=== PATIENT | female | born 1985 | race Caucasian/White ===

== ENCOUNTER 2020-08-20 09:07 | Emergency (ER) | payer BC, SELFPAY ==
--- NOTE | ~2020-08-20 | US_ITS ---
EXAMINATION: US OB <=14 wk fetus w TV DATE: 08/20/2020 10:59 INDICATION: Abdominal pain during first trimester TECHNIQUE: Real-time pelvic transabdominal and transvaginal ultrasound was performed. COMPARISON: None. FINDINGS: The uterus measures 8.4 x 5.0 x 6.4 cm. There is an intrauterine gestational sac. There is a 10 mm x 4 mm x 4 mm hypoechoic area adjacent to the gestational sac. A yolk sac is identified. Fet al heart motion is identified measuring 132 beats per minute (bpm) by M-mode Doppler. The crown rump length measures 4 mm , which correlates with an estimated gestational age of 6 weeks and 1 day( s) (+/-) 4 day(s). The right ovary measures 5.0 x 4.0 x 3.8 cm and contains a 3.7 cm cyst. The left ovary measures 2.9 x 1.5 x 2.5 cm. There is normal vascular flow in the ovaries. There is a small amount of free fluid in the pelvis. IMPRESSION: 1. Live intrauterine with an estimated gestational age of 6 weeks and 1 day(s) (+/-) 4 day( s) and an estimated delivery date of 04/14/2021. 2. Small subchronic hematoma. Reviewed, dictated and finalized at location B. IMPRESSION: 1. Live intrauterine with an estimated gestational age of 6 weeks and 1 day(s) (+/-) 4 day(s) and an estimated delivery date of 04/14/2021. 2. Small subchronic hematoma.
[2020-08-20 09:20] VITALS: BP 127/74; PULSE 72; RESP 18; TEMP 36.9; O2SAT 100
[2020-08-20 09:49] LABS: Basophils Percent Auto 0.4 % (0.2-1.2); Eosinophils Percent Auto 0.4 % (0-4.4); Hematocrit 39.1 % (37.0-47.0); Hemoglobin 13.2 g/dL (12.0-15.0); Immature Granulocyte Absolute 0.02 K/mm3 (0.00-0.031); Immature Granulocyte Percent A 0.4 % (0-0.5); Lymphocytes Absolute Auto 1.54 K/mm3 (0.9-3.2); Lymphocytes Percent Auto 29.2 % (18.3-44.2); Mean Corpuscular HGB Conc 33.8 g/dl (32-36); Mean Corpuscular Hemoglobin 30.1 pg (26-34); Mean Corpuscular Volume 89.1 fl (80-100); Mean Platelet Volume 9.1 fl (7.4-10.4); Monocytes Absolute Auto 0.4 K/mm3 (0.1-0.6); Monocytes Percent Auto 7.4 % (2.6-8.5); Neutrophils Absolute Auto 3.3 K/mm3 (1.3-6.7); Neutrophils Percent Auto 62.2 % (45.5-73.1); Platelet Count Result 255 k/mm3 (150-375); Red Blood Count 4.39 M/mm3 (4.2-5.4); Red Cell Distribution Width 11.9 % (11.5-14.5); White Blood Count 5.3 K/mm3 (4.5-10.0)
[2020-08-20 10:24] LABS: Add Urine Microscopic? YES; Appearance Urine Clear (Clear); Bacteria Urine Trace /hpf; Bilirubin Urine Negative (Negative); Blood Urine Negative (Negative); Color Urine Straw (Yellow); Glucose Urine UA Negative (Negative); Ketones Urine Negative (Negative); Leukocyte Esterase Ur 1+ LEU/UL (Negative); Nitrate Urine Negative (Negative); Protein Urine Negative (Negative); RBC Urine 0-2 /hpf (0-2); Specific Grav Ur 1.005 (1.001-1.035); Squamous Epithelial Cell Urine Moderate /hpf (Few); Urobilinogen Urine Negative mg/dL (<2.0); WBC Urine 0-3 /hpf
[2020-08-20 12:03] VITALS: BP 101/58; BP 111/68; PULSE 60; PULSE 63
[2020-08-20 12:05] VITALS: BP 112/73; PULSE 64
--- NOTE | 2020-08-20 12:25 | ED.FEMALEGU ---
HPI - Female Genitourinary General Chief complaint: APPEALS COORDINATOR Stated complaint: abdominal cramping 5 weeks Time Seen by Provider: 08/20/20 09:50 History of Present Illness HPI Narrative: Patient is a 35-year-old female who presents ER with lower abdominal cramping. Began earlier this morning radiates into the back. No vaginal bleeding or vaginal discharge or leakage of fluid. Denies dysuria or urinary frequency. Patient discovered 2 days ago that she is . She is a G3, P2. She is not had an ultrasound. No history of ectopic . Discussed case with her director of student services who recommend she come to the ER to be evaluated. Related Data Home Medications Medication Instructions Recorded Confirmed One Daily 08/20/20 Allergies Allergy/AdvReac Type Severity Reaction Status Date / Time No Known Allergies Allergy Verified 08/20/20 09:54 Review of Systems Review of Systems: All systems reviewed & are unremarkable except as noted in HPI and below Gastrointestinal: Gastrointestinal: Reports abdominal pain, Denies diarrhea, Denies nausea and Denies vomiting Genitourinary: Genitourinary: Denies abnormal vaginal bleeding, Denies hematuria, Denies nocturia and Denies vaginal discharge Musculoskeletal: Musculoskeletal: Reports back pain and Denies muscle cramps PMFSH Past Medical History Medical History (Updated 08/20/20 @ 12:29 by Satya Burden MD) Vaginal delivery x 2 Family History Family History Mother Breast cancer Father Hypertension Social History Social History Smoking status: Never smoker Exam Narrative: Exam Narrative: GENERAL: Well-appearing, well-nourished, and in no acute distress. HEAD: Normocephalic, atraumatic. CHEST: Clear to auscultation. No respiratory distress. HEART: Regular rate and rhythm. Normal peripheral pulses. ABDOMEN: Soft, nontender, nondistended. EXTREMITIES: Normal range of motion. No edema. SKIN: Warm, dry, no rash. NEURO: Alert and oriented x3. PSYCH: Normal mood and affect. Course Course Emergency Course: Informed results. Discharge home. Follow-up with primary OB. Vital Signs Vital signs: Vital Signs Temperature 98.5 F 08/20/20 09:20 Pulse Rate 72 08/20/20 09:20 Respiratory Rate 18 08/20/20 09:20 Blood Pressure 127/74 08/20/20 09:20 Pulse Oximetry 100 08/20/20 09:20 Temperature 98.5 F 08/20/20 09:20 Pulse Rate 64 08/20/20 12:05 Respiratory Rate 18 08/20/20 09:20 Blood Pressure 112/73 08/20/20 12:05 Pulse Oximetry 100 08/20/20 09:20 MDM - Female Genitourinary Lab Data Result diagrams: 08/20/20 09:27 Labs: Lab Results 08/20/20 08/20/20 08/20/20 Range/Units 09:25 09:27 09:27 WBC 5.3 (4.5-10.0) K/mm3 RBC 4.39 (4.2-5.4) M/mm3 Hgb 13.2 (12.0-15.0) g/dL Hct 39.1 (37.0-47.0) % MCV 89.1 (80-100) fl MCH 30.1 (26-34) pg MCHC 33.8 (32-36) g/dl RDW 11.9 (11.5-14.5) % Plt Count 255 (150-375) k/mm3 MPV 9.1 (7.4-10.4) fl Immature Gran % (Auto) 0.4 (0-0.5) % Neut % (Auto) 62.2 (45.5-73.1) % Lymph % (Auto) 29.2 (18.3-44.2) % [place] % (Auto) 7.4 (2.6-8.5) % Eos % (Auto) 0.4 (0-4.4) % Baso % (Auto) 0.4 (0.2-1.2) % Lymph # (Auto) 1.54 (0.9-3.2) K/mm3 [place] # (Auto) 0.4 (0.1-0.6) K/mm3 Eos # (Auto) 0.0 (0-0.3) K/mm3 Baso # (Auto) 0.0 (0.0-0.1) K/mm3 Abs Immat Gran (auto) 0.02 (0.00-0.031) K/mm3 Absolute Neuts (auto) 3.3 (1.3-6.7) K/mm3 Absolute Nucleated RBC 0.0 (0.0-0.012) K/mm3 Nucleated RBC % 0.0 (0.0-0.2) % Beta HCG, Quant 14917.00 mIU/ML Urine Color (Yellow) Urine Appearance (Clear) Urine pH (5.0-9.0) Ur Specific [place] (1.001-1.035) Urine Protein (Negative) mg/dL Urine Glucose (UA) (Negative) mg/dL Urine [place]
[2020-08-20 12:36] VITALS: BP 106/71; PULSE 64; RESP 12; O2SAT 100
== END 2020-08-20 12:36 | disposition home or self-care (01) ==
PROVIDERS: Emergency Provider Emergency Medicine; PCP Pediatrics
DX: O46.8X1 Other antepartum hemorrhage, first trimester (principal); Z3A.01 Less than 8 weeks gestation of pregnancy
CPT/HCPCS: 36415; 76801; 76817; 81001; 84702; 85025; 85461; 99284

== ENCOUNTER 2021-03-17 10:37 | Outpatient (RCR) | payer BC, SELFPAY ==
--- NOTE | ~2021-03-17 | US_ITS ---
US OB limited 03/17/2021 11:46 Indication: Evaluate amniotic fluid index Procedure: High-resolution Limited obstetrical ultrasound Comparison: 08/20/2020 Findings: There is a single living intrauterine in vertex presentation. heart rate is 137 BPM. Placenta is posterior without previa. Amniotic fluid index is normal measuring 16 cm. Impression: 1: Normal LOUISE measures 16 cm. Reviewed, dictated and finalized at location B. CIAL ADMINISTRATIVE ASSISTANT Impression: 1: Normal LOUISE measures 16 cm.
[2021-03-17 11:20] VITALS: BP 115/69; PULSE 73
== END 2021-04-06 08:37 | disposition home or self-care (01) ==
LOC: ANHOBOP 10:37
PROVIDERS: PCP Pediatrics; Visit Provider Obstetrics & Gynecology
DX: O09.513 Supervision of elderly primigravida, third trimester (principal); Z3A.36 36 weeks gestation of pregnancy
CPT/HCPCS: 59025; 76815

== ENCOUNTER 2021-03-26 21:17 | Inpatient (IN) | payer BC, SELFPAY ==
[2021-03-26 21:46] VITALS: BP 123/66; PULSE 75; RESP 18; TEMP 37.2
[2021-03-26 21:55] VITALS: BMI 37.0
--- NOTE | 2021-03-26 21:55 | LDADM ---
This patient, Taryn Maldonado, was admitted to Labor/Delivery/Recovery 104 on 03/26/21 at 21:17. Plans for labor, pain management and were discussed with patient. Patient/family oriented to hospital policies and general routines including ID bracelet, bed and alarms, visiting hours, pain management, procedures, bathroom and other care routines, personal items, smoking policy, room service/diet and guest tray routines, security routines, and visiting hours. Patient/Family are encouraged to report perceived risks to care and to ask questions if they do not understand what they are told or what they should do. See OBIX for further documentation.
[2021-03-26 22:01] VITALS: BP 115/68; PULSE 92
[2021-03-26 22:16] LABS: Basophils Percent Auto 0.2 % (0.2-1.2); Eosinophils Percent Auto 0.3 % (0-4.4); Hematocrit 34.3 % (37.0-47.0); Hemoglobin 11.7 g/dL (12.0-15.0); Immature Granulocyte Absolute 0.08 K/mm3 (0.00-0.031); Immature Granulocyte Percent A 0.9 % (0-0.5); Lymphocytes Absolute Auto 1.39 K/mm3 (0.9-3.2); Lymphocytes Percent Auto 14.9 % (18.3-44.2); Mean Corpuscular HGB Conc 34.1 g/dl (32-36); Mean Corpuscular Volume 90.7 fl (80-100); Monocytes Absolute Auto 0.7 K/mm3 (0.1-0.6); Monocytes Percent Auto 7.3 % (2.6-8.5); Neutrophils Absolute Auto 7.1 K/mm3 (1.3-6.7); Neutrophils Percent Auto 76.4 % (45.5-73.1); Platelet Count Result 240 k/mm3 (150-375); Red Blood Count 3.78 M/mm3 (4.2-5.4); Red Cell Distribution Width 12.4 % (11.5-14.5); White Blood Count 9.3 K/mm3 (4.5-10.0)
[2021-03-26 23:01] VITALS: TEMP 37.1
[2021-03-26] MEDS: LACTATED RINGERS 1,000 ML 999 ML IV CONT (23:05)
[2021-03-27] VITALS (58 sets, daily range): BP systolic 93–134; BP diastolic 52–103; PULSE 62–92; RESP 16–18; TEMP 36.2–37.2; O2SAT 97–100
--- NOTE | 2021-03-27 | WPDANESEPP ---
Anes - Eval Pre Procedure Procedure: Labor epidural Date/Time: 03/27/21 00:00 Preop Diagnosis: Abd pain with contractions Pre Op Diagnosis: SROM Patient Data Age: 35 Gender: F Height: 1.6 m Weight: 95 kg Last Vital Signs Temp 98.8 F 03/26/21 23:01 Pulse 92 03/26/21 22:01 Resp 18 03/26/21 21:46 BP 115/68 03/26/21 22:01 Allergies Allergy/AdvReac Type Severity Reaction Status Date / Time No Known Allergies Allergy Verified 03/24/21 08:44 Home Medications Medication Instructions Recorded Confirmed Type One Daily 08/20/20 03/24/21 History inulin 2 gram chewable tablet g PO 10/09/20 03/24/21 History ondansetron 4 mg disintegrating 4 mg PO Q8H PRN #20 tablet 02/05/21 03/24/21 Rx tablet Laboratory Tests 03/26/21 03/26/21 22:03 22:03 WBC 9.3 K/mm3 K/mm3 (4.5-10.0) RBC 3.78 M/mm3 L M/mm3 (4.2-5.4) Hgb 11.7 g/dL L g/dL (12.0-15.0) Hct 34.3 % L % (37.0-47.0) MCV 90.7 fl fl (80-100) MCH 31.0 pg pg (26-34) MCHC 34.1 g/dl g/dl (32-36) RDW 12.4 % % (11.5-14.5) Plt Count 240 k/mm3 k/mm3 (150-375) MPV 10.0 fl fl (7.4-10.4) Immature Gran % (Auto) 0.9 % H % (0-0.5) Neut % (Auto) 76.4 % H % (45.5-73.1) Lymph % (Auto) 14.9 % L % (18.3-44.2) [place] % (Auto) 7.3 % % (2.6-8.5) Eos % (Auto) 0.3 % % (0-4.4) Baso % (Auto) 0.2 % % (0.2-1.2) Lymph # (Auto) 1.39 K/mm3 K/mm3 (0.9-3.2) [place] # (Auto) 0.7 K/mm3 H K/mm3 (0.1-0.6) Eos # (Auto) 0.0 K/mm3 K/mm3 (0-0.3) Baso # (Auto) 0.0 K/mm3 K/mm3 (0.0-0.1) Abs Immat Gran (auto) 0.08 K/mm3 H K/mm3 (0.00-0.031) Absolute Neuts (auto) 7.1 K/mm3 H K/mm3 (1.3-6.7) Absolute Nucleated RBC 0.0 K/mm3 K/mm3 (0.0-0.012) Nucleated RBC % 0.0 % % (0.0-0.2) RPR Pending : gestational age HCG: positive Patient hx anesthesia problems: none Family hx anesthesia problems: none Results Review: All pre-operative results and documents have been reviewed as part of the pre-operative evaluation. [facility] Past Medical History Medical History Obesity and not yet delivered Vaginal delivery x 2 Family History Family History Mother Breast cancer Family history of malignant neoplasm of breast in first degree relative Father Hypertension Afib Social History Social History Smoking status: Never smoker Second hand tobacco smoke exposure: No Substance use: never Spiritual care concerns: No Exam Day of Procedure 03/27/21 00:00
[2021-03-27] MEDS: LACTATED RINGERS 1,000 ML 999 ML IV CONT (00:03)
--- NOTE | 2021-03-27 03:11 | PM.OBPRVD ---
OB - Delivery Note Procedure Delivery date: 03/27/21 Procedure: Spontaneous vaginal delivery Intrapartal events: None Induction method: none Delivery monitor: external FHT Route of delivery: Laceration Description: None Specimen: Yes (cord blood and cord gases) Quantitative Blood Loss (ml): 150 Anesthesia type: Epidural Disposition: floor Complications: None Narrative: Patient admitted in active labor after having SROM clear at 1950. At approximately six hours after SROM she was 3-4. Forebag was present. She had spontaneous rupture of the forebag and soon after was complete. She pushed three times with one contraction and delivered a male . His nose and mouth were suctioned with the bulb at perineum. The rest of the infant was delivered. He was vigorously crying and placed on maternal abdomen. Once cord was apulsatile, it was doubly clamped and cut. Cord gases and cord blood obtained. Placenta delivered spontaneously and intact. No lacerations. [place] Baby Date of : 03/27/21 Time of : 02:57 Weeks of gestation at delivery: 37 Infant gender: Male Weight (pounds): 7 Weight (ounces): 13 presentation: vertex position: Right Occiput Anterior Placenta delivery description: Spontaneous cord vessel description: 3 Vessels and Delayed Cord Clamping score one minute: 9 score five minutes: 9 AMG Delivery Billing Delivery Delivery: Delivery Charge
--- NOTE | 2021-03-27 03:20 | PM.IMHP ---
H&P: HPI History of Present Illness Date/Time: 03/27/21 03:20 Patient at 37 6/7 weeks admitted with SROM at 1750. Cervix . PNC significant for AMA. Labs reviewed. GBS neg. Chief Complaint: Leaking of fluid Review of Systems Review of Systems: All systems reviewed & are unremarkable except as noted in HPI and below Constitutional: Constitutional: Reports no additional constitutional complaints and Denies headache(s) Eyes: Eyes: Denies spots in vision ENT: Reports system reviewed and no additional complaints, except as documented and Denies headache(s) Cardiovascular: Cardiovascular: Denies chest pain and Denies dyspnea Respiratory: Respiratory: Denies dyspnea Gastrointestinal: Gastrointestinal: Reports no additional gastrointestinal complaints Genitourinary: Genitourinary: Reports amenorrhea Musculoskeletal: Musculoskeletal: Reports no additional musculoskeletal complaints Integumentary/Breasts: Skin/Breast: Denies breast mass and Denies rash Neurologic: Denies headache(s) Psychiatric: Psychiatric: Reports no additional psychiatric complaints PMFSH Past Medical History Medical History Obesity and not yet delivered Vaginal delivery x 2 Family History Family History Mother Breast cancer Family history of malignant neoplasm of breast in first degree relative Father Hypertension Afib Social History Social History Smoking status: Never smoker Second hand tobacco smoke exposure: No Substance use: never Spiritual care concerns: No Meds Home Medications and Allergies Home Medications Medication Instructions Recorded Confirmed Type One Daily 08/20/20 03/27/21 History inulin 2 gram chewable tablet g PO 10/09/20 03/27/21 History ondansetron 4 mg disintegrating 4 mg PO Q8H PRN #20 tablet 02/05/21 03/27/21 Rx tablet Allergies Allergy/AdvReac Type Severity Reaction Status Date / Time No Known Allergies Allergy Verified 03/24/21 08:44 Vital Signs Vital Signs - 24 hr 03/26/21 21:46 03/26/21 22:01 03/26/21 23:01 Temperature 98.9 F 98.8 F Pulse Rate 75 92 Respiratory Rate 18 Blood Pressure 123/66 115/68 Pulse Oximetry 03/27/21 00:02 03/27/21 00:06 03/27/21 00:07 Temperature 99 F Pulse Rate 75 Respiratory Rate 18 Blood Pressure 124/64 Pulse Oximetry 99 100 03/27/21 00:08 03/27/21 00:10 03/27/21 00:12 Temperature Pulse Rate 68 80 Respiratory Rate Blood Pressure 122/67 116/71 Pulse Oximetry 100 03/27/21 00:13 03/27/21 00:16 03/27/21 00:17 Temperature Pulse Rate 77 74 Respiratory Rate Blood Pressure 124/71 134/75 Pulse Oximetry 99 03/27/21 00:19 03/27/21 00:22 03/27/21 00:25 Temperature Pulse Rate 83 80 81 Respiratory Rate Blood Pressure 131/78 132/72 111/68 Pulse Oximetry 99 03/27/21 00:27 03/27/21 00:28 03/27/21 00:31 Temperature Pulse Rate 77 69 Respiratory Rate Blood Pressure 125/69 120/65 Pulse Oximetry 100 03/27/21 00:32 03/27/21 00:34 03/27/21 00:37 Temperature Pulse Rate 76 78 Respiratory Rate Blood Pressure 118/55 L 105/65 Pulse Oximetry 99 99 03/27/21 00:39 03/27/21 00:42 03/27/21 00:43 Temperature Pulse Rate 83 71 Respiratory Rate Blood Pressure 119/65 102/57 L Pulse Oximetry 100 03/27/21 00:46 03/27/21 00:47 03/27/21 00:52 Temperature Pulse Rate 71 Respiratory Rate Blood Pressure 104/61 Pulse Oximetry 100 100 03/27/21 00:57 03/27/21 01:00 03/27/21 01:01 Temperature 98.8 F Pulse Rate 72 Respiratory Rate Blood Pressure 93/52 L Pulse Oximetry 100 03/27/21 01:02 03/27/21 01:07 03/27/21 01:12 Temperature Pulse Rate Respiratory Rate Blood Pressure Pulse Oximetry 97 97 99 03/27/21 01:15 0204
--- NOTE | 2021-03-27 05:40 | OBPPTRN ---
Patient transferred to post room #290 via wheelchair. Support person present. Oriented to unit, room, information board, rooming in, admission packet and security measures. Patient verbalizes understanding.
[2021-03-27] MEDS: MULTIVIT/MIN/PREN/FOL AC/IRON TABLET 1 TAB PO (07:04)
--- NOTE | 2021-03-27 07:57 | PC.NURSE ---
0730 - Introductions were made and mother led the discussion of her desires and plans to feed her baby. Mother has verbalized understanding watching for feeding cues for responsive feeding or how to stimulate to initiate from the start of the last feeding. Mother voiced understanding to feed infant when she sees feeding cues, 8-12 times in 24 hours approximately every 2-3 hours from the start of the last feeding or she has discomfort with nursing. Infant is in the nursery for assessment. Mother will call when baby is back with her showing feeding cues.
--- NOTE | 2021-03-27 08:06 | PC.NURSE ---
0730 - Mother voiced that she was able to latch infant and breastfeed without any discomfort.
[2021-03-27 09:25] LABS: Rapid Plasma Reagin Non-Reactive (NonReactive)
[2021-03-27] MEDS: ACETAMINOPHEN 325 MG TABLET 650 MG PO ×3 (10:19→23:35)
[2021-03-27] MEDS: IBUPROFEN 600 MG TABLET PO ×3 (10:20→23:36)
[2021-03-27] MEDS: WITCH HAZEL 40 PADS 1 PAD TOPICAL (10:22)
[2021-03-27] MEDS: BENZOCAINE 20% AER SPR (*SP) 56 GM CAN 1 SPRAY TOPICAL (10:22)
[2021-03-28 05:39] LABS: Hemoglobin 10.6 g/dL (12.0-15.0)
[2021-03-28] MEDS: ACETAMINOPHEN 325 MG TABLET 650 MG PO ×2 (05:46→11:22)
[2021-03-28] MEDS: IBUPROFEN 600 MG TABLET PO ×2 (05:47→11:23)
--- NOTE | 2021-03-28 07:00 | PC.NURSE ---
PT introductions made and plan of care discussed per post , pain management, breast feeding, daily care activities and pending discharge to home. PT received instructions per one to one discussion, mom baby care guide and demonstrations during this shift. Pt sole recipient of such instructions and no barriers to learning identified at this time. PT verbalized understanding of such care.
--- NOTE | 2021-03-28 07:27 | WPDANLDPN2 ---
Anes-Prog Note L&D Date/Time: 03/28/21 07:27 Comfortable throughout: labor and delivery Neuraxial method: epidural Epidural/Spinal procedure site: clean & non-tender Neuro status: Neuro function grossly intact. Cardiovascular status: normal Respiratory status: normal Airway patency: baseline Mental status: baseline Post-Op hydration status: normal Vital Signs: Last Vital Signs Temp 97.8 F 03/27/21 23:29 Pulse 67 03/27/21 23:29 Resp 16 03/27/21 23:29 BP 116/72 03/27/21 23:29 Pulse Ox 98 03/27/21 23:29 Pain score (VAS): 03/02 Post-procedural complaints: none Patient feedback: Patient satisfied with anesthetic care.
--- NOTE | 2021-03-28 08:52 | PM.OBPNVD ---
OB - PN: Subj Subjective Date/time seen: 03/28/21 08:52 Mild swelling in hands and legs, no pain in extremities. Patient comments: pain well controlled, tolerating diet and other (Decreasing lochia.) [place] baby status: doing well and nursing well [place] feeding status: exclusively breast feeding OB - PN: Obj Data Labs CBC & Chem 7: 03/28/21 04:58 Labs: Laboratory Results - last 24 hr 03/26/21 03/28/21 22:03 04:58 Hgb 10.6 L Hct 30.0 L RPR Non-reactive OB - PN A/P Plan day: 1 Plan: routine care Comments: Patient doing well. Will discharge today. Discharge precautions discussed. Time Spent With Patient Time: Total time spent is greater than 50% in coordination of care (as documented) at patient's floor/unit and/or counseling patient: Exam Const: General: comfortable and no acute distress Eyes: General: appearance normal, both eyes and all related structures Resp: Effort & Inspection: normal respiratory effort GI: Inspection: normal to inspection Skin: General skin exam: normal color Psych: Affect: normal affect Other: Abd: fundus firm below umbilicus, nontender Perineum: healing Ext: nontender. 1+ tr edema U and LE bilat
--- NOTE | 2021-03-28 09:05 | PM.OBDSVD ---
DS: Admitting Diagnosis Discharge Date 03/28/2021 Admitting Diagnosis Spontaneous rupture of membranes. Labor. DS: Discharge Diagnosis Discharge Diagnosis (1) Delivery normal: Code(s): O80 - Encounter for full-term uncomplicated delivery Status: Acute OB - DS: Summary Hospital Course Hospital Course: Patient admitted after SROM confirmation. Cervix was 3 cm. At 7 hours after SROM cervix with minimal change, she did have a forebag. The forebag did spontaneously rupture and she dilated quickly to complete and had an uncomplicated vaginal delivery. She did well , normal vitals, Hemoglobin 10.6. She was discharged to home on day 1. Discharge precautions discussed. OB Procedures : Ultrasound OB Procedures Intrapartum: Spontaneous Vag Delivery OB Procedures: : None Peripartum Data Infant Delivery Method: Natural Vaginal Procedures: Spontaneous vaginal delivery. complications: none Status at Discharge Functional status at discharge: independent ambulation Time Spent with Patient Time attestation: Total time spent providing and/or coordinating discharge services: Exam Const: General: cooperative Orientation/consciousness: oriented to person, oriented to place and oriented to time HENMT: General nose exam: Normal external nose present Eyes: General: appearance normal, both eyes and all related structures Resp: Effort & Inspection: normal respiratory effort GI: Inspection: normal to inspection Skin: General skin exam: normal color Neuro: General: oriented to person, oriented to place and oriented to time Extrem: General: normal to inspection and no calf tenderness Psych: Appearance: grossly normal Mental Status: mental status grossly normal DS: Data Data Completed and Pending Labs on day of discharge: Labs from last 24 hours 03/28/21 03/26/21 04:58 22:03 Hgb 10.6 L Hct 30.0 L RPR Non-reactive Discharge Plan Discharge Attending physician on discharge: Cale Martinez Consulting providers: Laureano Martini Discharging Clinician: Cale Martinez Anticipated Discharge Date/Time: 03/28/21 09:21 Patient Disposition: Home, Self-Care Activity: may shower and pelvic rest Diet: regular Discharge Instructions: Education: Mom and Baby Guide Given to: Mother Follow-Up: Call your delivering provider's office for an appointment to be seen in: 4 Weeks Mom and baby should come to the [facility] for the follow-up appointment. Appointment Date/Time: March 30, 2021 at 8:00 am What to expect at your follow-up visit: Blood Pressure Check Call [phone] if you are unable to keep your appointment time. BREAST CARE: * Wear a snug supportive bra. * For engorgement discomfort: Breast Feeding: * Apply warm moist washcloths * Express milk as needed to relieve engorgement * Wear loose clothing Bottle Feeding: * May apply ice packs * For sore nipples: * Identify correct latch-on * Apply warm moist washcloths before and after nursing * Air dry nipples after nursing * May apply Lansinoh cream to nipples PERINEAL CARE: * Until bleeding stops, use your gene bottle after urinating * Change your pad frequently throughout the day * You may take sitz baths several times a day (fill your bathtub with warm water and soak for 20 minutes.) Do NOT bathe in the water * No tub baths until seen by your physician - You may shower ACTIVITY: * Rest as much as possible. * Do not exercise or lift anything heavier than your baby (such as laundry or other children.) * Avoid stairs or driving as much as possible. * Do not put anything into the vagina. No douching, tampons, or sexual activity until seen by physician. Take vitamins daily. May take over the counter Ibuprofen or Tylenol for pain. NOTIFY PHYSICIAN IF YOU
[2021-03-28 10:30] VITALS: BP 121/72; PULSE 89; RESP 16; TEMP 36.6; O2SAT 98
[2021-03-28] MEDS: DOCUSATE SODIUM 100 MG CAPSULE PO (11:24)
[2021-03-28] MEDS: MULTIVIT/MIN/PREN/FOL AC/IRON TABLET 1 TAB PO (11:24)
[2021-03-28] MEDS: LANOLIN (LANSINOH) 7.5 GM CREAM 1 APPLIC TOPICAL (11:24)
--- NOTE | 2021-03-28 11:30 | PC.NURSE ---
PT received discharge instructions per protocol and verbalized understanding of such care.
--- NOTE | 2021-03-28 12:12 | PC.NURSE ---
Patient was given the opportunity to view the discharge video Mother & Baby Care, The First Two Weeks and to ask questions. Patient declined viewing the video and has been given the mother/baby guide for home reference.
--- NOTE | 2021-03-28 12:18 | PC.NURSE ---
PT discharged to home ambulatory accompanied by spouse and and taken to waiting car. Follow up appts confirmed
== END 2021-03-28 12:18 | disposition home or self-care (01) | DRG 807 ==
LOC: ANHLDR 22:06 → ANHOB2 03-27 05:47
PROVIDERS: Admitting Provider Obstetrics & Gynecology; PCP Pediatrics; Visit Provider Obstetrics & Gynecology
DX: O76 Abnormality in fetal heart rate and rhythm complicating labor and delivery (principal); Z37.0 Single live birth; O99.214 Obesity complicating childbirth; E66.9 Obesity, unspecified; Z3A.37 37 weeks gestation of pregnancy
CPT/HCPCS: 36415; 84112; 85014; 85018; 85025; 86592; 86850; 86900; 86901; A9270; J2795; J7120

== ENCOUNTER 2022-08-20 18:46 | Emergency (ER) | payer BC, SELFPAY ==
--- NOTE | ~2022-08-20 | CT_ITS ---
EXAMINATION: CT brain wo con DATE: 08/20/2022 19:26 INDICATION: head trauma . TECHNIQUE: Computed tomography (CT) of the head was performed without intravenous contrast. The mA wa s adjusted according to patient size. Iterative reconstruction technique was employed. The dose-lengt h product was 605.33 mGy-cm. COMPARISON: None. FINDINGS: No acute intracranial hemorrhage or extra-axial fluid collection. No hydrocephalus, mass, or herniation. No acute ischemic infarct. Unremarkable dural venous sinus attenuation. No acute osseous abnormality. Calcified and noncalcified subcutaneous scalp cysts. Right maxillary air-fluid level. Retention cyst/polyp versus aerated secretion in the right maxillary sinus, trace bilateral mastoid fluid, the remaining aerated spaces are clear. IMPRESSION: No acute intracranial process. Right maxillary and sphenoid fluid/secretions, may represent sinusitis or mucosal hemorrhage in the setting of trauma. Reviewed, dictated and finalized at location K. IMPRESSION: No acute intracranial process. Right maxillary and sphenoid fluid/secretions, m ay represent sinusitis or mucosal hemorrhage in the setting of trauma.
--- NOTE | ~2022-08-20 | CT_ITS ---
EXAMINATION: CT facial bones wo con DATE: 08/20/2022 19:26 INDICATION: trauma to nose . TECHNIQUE: Computed tomography (CT) of the facial bones and maxillofacial region was performed withou t intravenous contrast. Automated exposure control and iterative reconstruction technique were employ ed. The dose-length product was 449.08 mGy-cm. COMPARISON: None. FINDINGS: Soft Tissues: Soft tissue swelling over the nose. Facial bones: Mildly comminuted and depressed nasal bone fractures. No lytic or blastic process. Eyes: The globes are intact. The soft tissue planes of the orbits are maintained. Paranasal Sinuses: Right maxillary air-fluid level. Retention cyst/polyp versus aerated secretion in the right sphenoid sinus, trace bilateral mastoid fluid, the remaining aerated spaces are clear. Foreign Bodies: No radiopaque foreign bodies. Other Findings: None. IMPRESSION: Mildly comminuted and depressed nasal bone fractures. Paranasal sinus findings may represent acute sinusitis versus mucosal hemorrhage. Bilateral mastoid effusions, no evidence of temporal bone fracture. Reviewed, dictated and finalized at location K. IMPRESSION: Mildly comminuted and depressed nasal bone fractures. Paranasal sinus findings may represent acute sinusitis versus mucosal hemorrhag e. Bilateral mastoid effusions, no evidence of temporal bone fracture.
[2022-08-20 18:50] VITALS: BP 132/77; PULSE 66; RESP 16; TEMP 36.6; O2SAT 100
[2022-08-20] MEDS: ACETAMINOPHEN 500 MG TABLET 1000 MG PO (19:31)
[2022-08-20] MEDS: ONDANSETRON HCL ODT 4 MG TABLET PO (19:32)
--- NOTE | 2022-08-20 19:34 | ED.HEATRA ---
HPI - Head Injury General Chief complaint: Head Injury Stated complaint: nose injury Time Seen by Provider: 08/20/22 19:01 History of Present Illness HPI Narrative: Patient was playing airplane with a 5-year-old son, causing him up in the air, when he landed on her face, she denies passing out though she feels like she wants to come has not thrown up but feels quite nauseous, has a bad headache, cannot remember everything, but overall is feeling quite unwell. She also has a lot of pain to her nose, she has had concussions in the past and broken her nose before. Related Data Home Medications Medication Instructions Recorded Confirmed One Daily 08/20/20 03/11/22 cholecalciferol (vitamin D3) 25 25 mcg PO DAILY 04/21/21 03/11/22 mcg (1,000 unit) capsule Allergies Allergy/AdvReac Type Severity Reaction Status Date / Time No Known Allergies Allergy Verified 03/11/22 08:58 Review of Systems Review of Systems: CONST: No fever. HEENT: Nose pain; photophobia C/V: No chest pain RESP: No cough GI: Nausea : No dysuria. M/S: No joint pain. SKIN: Bruising to noaw NEURO: Headache without focal numbness or weakness PSYCH: [No depression] PMFSH Past Medical History Medical History Obesity and not yet delivered Vaginal delivery x 2 Family History Family History Mother Breast cancer Family history of malignant neoplasm of breast in first degree relative Father Hypertension Afib Social History Social History Smoking status: Never smoker Second hand tobacco smoke exposure: No Substance use: never Spiritual care concerns: No Exam Narrative: EXAMINATION OF ORGAN SYSTEMS/BODY AREAS: Constitutional: Vital signs per nursing GENERAL: Appears sleepy and uncomfortable HEAD: No overt signs of head trauma EYES: EOMI, PERRL ENT: Swelling/bruising to nasal bridge LUNGS: Nonlabored breathing. HEART: [Regular rate and rhythm] ABD: [Soft], [nontender to palpation] EXT: Normal range of motion SKIN: [No rashes or lesions.] NEURO: [Alert and oriented x 3. No gross focal sensory or strength deficits.] PSYCH: Sad affect Course Vital Signs Vital signs: Vital Signs Temperature 98 F 08/20/22 18:50 Pulse Rate 66 08/20/22 18:50 Respiratory Rate 16 08/20/22 18:50 Blood Pressure 132/77 08/20/22 18:50 Pulse Oximetry 100 08/20/22 18:50 Oxygen Delivery Room Air 08/20/22 18:50 Temperature 98 F 08/20/22 18:50 Pulse Rate 78 08/20/22 21:28 Respiratory Rate 18 08/20/22 21:28 Blood Pressure 130/62 08/20/22 21:28 Pulse Oximetry 99 08/20/22 21:28 Oxygen Delivery Room Air 08/20/22 18:50 MDM - Head Injury MDM Narrative Medical decision making narrative: 37-year-old female presenting after head trauma, she is quite nauseous, overall she does not feel well. She also has swelling deformity to the nose. Vital signs stable, normal neurologic exam without focal deficits, after shared decision making they would prefer to have a scan done here given how awful the patient feels currently, CT head reviewed by myself that did not show any obvious intracranial hemorrhage per my independent interpretation, and face showing mild comminuted nasal fractures per radiology. Patient given Zofran and Tylenol and feeling slightly better on interpretation, I did discuss nasal and concussion precautions. Patient already on Flonase. She is given follow-up to ENT and she would like to follow-up with her primary care doctor regarding her concussion. Return precautions discussed. Discharge Plan Discharge Clinical Impression: Closed fracture nasal bone, Concussion without loss of consciousness Patient Disposition: Home, Self-Care Condition: Stable Instructions: Antibiotic Form, Nasal Fracture (ED), Concussio
[2022-08-20 21:28] VITALS: BP 130/62; PULSE 78; RESP 18; O2SAT 99
== END 2022-08-20 21:29 | disposition home or self-care (01) ==
PROVIDERS: Emergency Provider Emergency Medicine; PCP Pediatrics
DX: S02.2XXA Fracture of nasal bones, initial encounter for closed fracture (principal); S06.0X0A Concussion without loss of consciousness, initial encounter; W50.0XXA Accidental hit or strike by another person, initial encounter
CPT/HCPCS: 70450; 70486; 99284; A9270

== ENCOUNTER 2024-02-10 12:59 | Outpatient (CLI) | payer BC, SELFPAY ==
--- NOTE | ~2024-02-10 | US_ITS ---
EXAMINATION: US pelvic complete w TV INDICATION: Pelvic pressure Comparison:No prior studies for comparison. TECHNIQUE: Multiple transabdominal and endovaginal sonographic images of the pelvis performed. FINDINGS: The uterus measures 8.9 x 5.1 x 5.3 cm. The endometrial complex measures 1.6 cm. The right ovary measures 4 x 2.1 x 1.7 cm and the left ovary measures 2.4 x 2.1 x 1.6 cm. There are small follicles in each ovary. Normal doppler signal in both ovaries. There is free fluid in the pelvis. There are no abnormal masses seen on either side. IMPRESSION: 1. Endometrial thickening. Reviewed, dictated and finalized at location B. T ASSOCIATE IMPRESSION: 1. Endometrial thickening.
== END 2024-02-10 13:00 | disposition home or self-care (01) ==
LOC: MICIMG 12:59
PROVIDERS: PCP Nurse Practitioner Obstetrics & Gynecology; Visit Provider Nurse Practitioner Obstetrics & Gynecology
DX: R10.2 Pelvic and perineal pain (principal)
CPT/HCPCS: 76830; 76856

== ENCOUNTER 2024-04-18 10:51 | Outpatient (CLI) | payer BC, SELFPAY ==
--- NOTE | ~2024-04-18 | US_ITS ---
EXAMINATION: US thyroid DATE: 04/18/2024 11:16 INDICATION: Enlarged thyroid. TECHNIQUE: Multiple ultrasound images of the thyroid were obtained. COMPARISON: None. FINDINGS: The right thyroid lobe measures 5.7 x 2.2 x 1.5 cm. The left thyroid lobe measures 4.8 x 1.4 x 1.3 c m. In the right thyroid lobe, there is an 11 mm mixed cystic and solid, hypoechoic, solid nodule wit h smooth margin without echogenic foci (TI-RADS TR3). In the left thyroid lobe, there is an 8 mm david d, very hypoechoic, wider than tall nodule with ill-defined margin without echogenic foci (TR4). IMPRESSION: 1. Small thyroid nodules, likely not clinically significant. No follow-up is needed. Reviewed, dictated and finalized at location A. NCE BROKER IMPRESSION: 1. Small thyroid nodules, likely not clinically significant. No follow-up is ne eded.
== END 2024-04-18 10:52 | disposition home or self-care (01) ==
LOC: MICIMG 10:51
PROVIDERS: PCP Pediatrics; Visit Provider Pediatrics
DX: E04.2 Nontoxic multinodular goiter (principal)
CPT/HCPCS: 76536